=== PATIENT | female | born 1930 | race Caucasian/White ===

== ENCOUNTER 2020-05-05 16:15 | Observation (INO) | payer MEDICARE, OTHER ==
[~2020-05-05] VITALS: Ht 152.4 cm; Wt 66.6 kg
[~2020-05-05 16:15] MED LIST: Z.0.BENAZEPRIL HCL20 PO; Z.0.CARTIA XT240 MG PO; Z.0.EVISTA60 MG; Z.0.NEXIUM40 M1
[2020-05-05] MEDS ORDERED: SODIUM CHLORIDE 0.9% 1000ML 1,000 ML IV STA (16:34)
[2020-05-05] MEDS ORDERED: ASPIRIN 81 MG CHEW TAB PO ONE (16:45)
[2020-05-05 16:55] LABS: BASOPHILS % 0.1 % (0.0-1.0); HEMATOCRIT 41.1 % (34.2-44.1); HEMOGLOBIN 13.4 g/dL (12.0-16.0); LYMPHOCYTES # (AUTO) 0.8 (1.0-3.2); LYMPHOCYTES % 5.2 % (18.0-39.1); MEAN CORPUSCULAR HEMOGLOBIN 30.5 pg (28-32); MEAN CORPUSCULAR HGB CONC 32.6 g/dL (31-35); MEAN CORPUSCULAR VOLUME 93.6 fL (81-99); MONOCYTES # (AUTO) 1.3 (0.2-0.8); MONOCYTES % 8.6 % (4.4-11.3); NEUTROPHILS # (AUTO) 12.9 (2.1-6.9); NEUTROPHILS % 85.4 % (38.7-80.0); PLATELET COUNT 361 x10e3/uL (140-360); RED BLOOD COUNT 4.39 x10e6/uL (3.6-5.1)
[2020-05-05 17:15] LABS: ALANINE AMINOTRANSFERASE 23 IU/L (0-55); ALBUMIN 3.7 g/dL (3.5-5.0); ALBUMIN/GLOBULIN RATIO 1.1 (0.8-2.0); ALKALINE PHOSPHATASE 70 IU/L (40-150); ANION GAP 16.7 mmol/L (8-16); BLOOD UREA NITROGEN 9 mg/dL (7-26); BUN/CREATININE RATIO 13 (6-25); CALCIUM 9.2 mg/dL (8.4-10.2); CARBON DIOXIDE 27 mmol/L (22-29); CHLORIDE 94 mmol/L (98-107); CREATINE KINASE 350 IU/L (29-168); CREATININE, SERUM 0.71 mg/dL (0.57-1.11); EST GLOMERULAR FILTRATION RATE > 60 ML/MIN (60-); GLUCOSE 156 mg/dL (74-118); POTASSIUM 3.7 mmol/L (3.5-5.1); SODIUM 134 mmol/L (136-145)
[2020-05-05 21:01] VITALS: BP 148/85
[2020-05-05] MEDS ORDERED: ATORVASTATIN CA40 MG PO (21:02)
[2020-05-05] MEDS ORDERED: NEXIUM40 MG PO (21:02)
[2020-05-05] MEDS ORDERED: ASPIRIN81 MG PO (21:03)
[2020-05-05] MEDS ORDERED: Magnesium PO (21:04)
[2020-05-05] MEDS ORDERED: Vitamin D-3 PO (21:04)
[2020-05-05] MEDS ORDERED: COLACE100 MG PO (21:07)
[2020-05-05] MEDS ORDERED: Probiotic PO (21:07)
[2020-05-05] MEDS ORDERED: D-Mannose PO (21:07)
[2020-05-05] MEDS ORDERED: [UNRECOGNIZED DRUG - OTHER] PO (21:07)
[2020-05-05 21:57] VITALS: BP 148/85
[2020-05-05] MEDS: SODIUM CHLORIDE 0.9% 1000ML 1,000 ML IV SCH (22:10)
[2020-05-05 22:16] LABS: BILIRUBIN,URINE NEGATIVE (NEGATIVE); CLARITY,URINE CLEAR (CLEAR); COLOR,URINE YELLOW (YELLOW); KETONES,URINE 2+ (NEGATIVE); LEUKOCYTE ESTERASE ,URINE NEGATIVE (NEGATIVE); NITRITE,URINE NEGATIVE (NEGATIVE); PROTEIN,URINE DIPSTICK NEGATIVE (NEGATIVE); URINE UROBILINOGEN 0.2 mg/dL (0.2 - 1)
[2020-05-05 22:24] LABS: AMORPHOUS SEDIMENT,URINE MODERATE (FEW); BACTERIA,URINE FEW /HPF; EPITHELIAL CELLS,URINE FEW /LPF; RBC,URINE 0-5 /HPF (0-5); WBC,URINE (MAN) 0-5 /HPF (0-5)
[2020-05-05 22:43] VITALS: BP 148/85
[2020-05-06] VITALS (8 sets, daily range): BP systolic 139–191; BP diastolic 59–94
[2020-05-06 05:10] LABS: BASOPHILS % 0.1 % (0.0-1.0); EOSINOPHILS % 0.2 % (0.0-6.0); HEMATOCRIT 34.6 % (34.2-44.1); HEMOGLOBIN 11.1 g/dL (12.0-16.0); LYMPHOCYTES # (AUTO) 1.8 (1.0-3.2); LYMPHOCYTES % 19.6 % (18.0-39.1); MEAN CORPUSCULAR HGB CONC 32.1 g/dL (31-35); MEAN CORPUSCULAR VOLUME 93.5 fL (81-99); MONOCYTES # (AUTO) 0.9 (0.2-0.8); MONOCYTES % 10.5 % (4.4-11.3); NEUTROPHILS # (AUTO) 6.2 (2.1-6.9); NEUTROPHILS % 69.3 % (38.7-80.0); PLATELET COUNT 275 x10e3/uL (140-360); RED CELL DISTRIBUTION WIDTH 14.2 % (11.7-14.4)
[2020-05-06] MEDS: SODIUM CHLORIDE 0.9% 1000ML 1,000 ML IV SCH (05:26)
[2020-05-06 05:34] LABS: ALANINE AMINOTRANSFERASE 18 IU/L (0-55); ALBUMIN 2.7 g/dL (3.5-5.0); ALBUMIN/GLOBULIN RATIO 1.1 (0.8-2.0); ALKALINE PHOSPHATASE 50 IU/L (40-150); ANION GAP 12.1 mmol/L (8-16); BLOOD UREA NITROGEN 7 mg/dL (7-26); BUN/CREATININE RATIO 11 (6-25); CALCIUM 7.9 mg/dL (8.4-10.2); CARBON DIOXIDE 24 mmol/L (22-29); CHLORIDE 103 mmol/L (98-107); CREATININE, SERUM 0.62 mg/dL (0.57-1.11); EST GLOMERULAR FILTRATION RATE > 60 ML/MIN (60-); GLUCOSE 92 mg/dL (74-118); POTASSIUM 3.1 mmol/L (3.5-5.1); SODIUM 136 mmol/L (136-145)
[2020-05-06 10:00] LABS: CREATINE KINASE MB 3.1 ng/mL (0-5.0)
[2020-05-06] MEDS ORDERED: POTASSIUM CHLORIDE 10MEQ EA PO ONE (10:45)
[2020-05-06] MEDS: CEPHALEXIN 500 MG CAP PO SCH ×3 (11:06→21:27)
[2020-05-06] MEDS: BENAZEPRIL HCL 10 MG TAB PO SCH ×2 (11:07→17:20)
[2020-05-06] MEDS: DILTIAZEM HCL ER 120 MG CAP PO SCH ×2 (11:07→17:20)
[2020-05-06] MEDS ORDERED: PANTOPRAZOLE SOD 40 MG TABEC PO SCH (17:00)
[2020-05-06] MEDS ORDERED: ATORVASTATIN 40 MG TAB PO SCH (21:00)
[2020-05-06] MEDS ORDERED: MAGNESIUM OXIDE 400 MG TAB PO SCH (21:00)
[2020-05-07] VITALS (8 sets, daily range): BP systolic 130–166; BP diastolic 55–73
[2020-05-07 05:59] LABS: BASOPHILS % 0.3 % (0.0-1.0); EOSINOPHILS % 0.5 % (0.0-6.0); HEMATOCRIT 33.2 % (34.2-44.1); HEMOGLOBIN 10.7 g/dL (12.0-16.0); LYMPHOCYTES # (AUTO) 1.6 (1.0-3.2); MEAN CORPUSCULAR HEMOGLOBIN 30.3 pg (28-32); MEAN CORPUSCULAR HGB CONC 32.2 g/dL (31-35); MEAN CORPUSCULAR VOLUME 94.1 fL (81-99); MONOCYTES # (AUTO) 0.9 (0.2-0.8); MONOCYTES % 9.8 % (4.4-11.3); NEUTROPHILS # (AUTO) 6.2 (2.1-6.9); NEUTROPHILS % 70.9 % (38.7-80.0); PLATELET COUNT 271 x10e3/uL (140-360); RED BLOOD COUNT 3.53 x10e6/uL (3.6-5.1); RED CELL DISTRIBUTION WIDTH 14.3 % (11.7-14.4)
[2020-05-07 06:18] LABS: ANION GAP 10.5 mmol/L (8-16); BLOOD UREA NITROGEN 8 mg/dL (7-26); BUN/CREATININE RATIO 13 (6-25); CALCIUM 8.2 mg/dL (8.4-10.2); CARBON DIOXIDE 26 mmol/L (22-29); CHLORIDE 103 mmol/L (98-107); CREATININE, SERUM 0.62 mg/dL (0.57-1.11); EST GLOMERULAR FILTRATION RATE > 60 ML/MIN (60-); GLUCOSE 108 mg/dL (74-118); POTASSIUM 3.5 mmol/L (3.5-5.1); SODIUM 136 mmol/L (136-145)
[2020-05-07] MEDS: BENAZEPRIL HCL 10 MG TAB PO SCH (08:58)
[2020-05-07] MEDS: DILTIAZEM HCL ER 120 MG CAP PO SCH (08:58)
== END 2020-05-07 12:13 | disposition home or self-care (01) ==
LOC: ER 16:48 → INTOOBSV 18:24 → ERHOLD 18:24 → MED/SURG3 21:05
PROVIDERS: ADMIT Internal Medicine; ATTEND Internal Medicine
DX: E86.0 Dehydration (principal); M62.82 Rhabdomyolysis; S40.021A Contusion of right upper arm, initial encounter; W18.2XXA Fall in (into) shower or empty bathtub, initial encounter; Y92.002 Bathroom of unspecified non-institutional (private) residence as the place of occurrence of the external cause; Z11.59 Encounter for screening for other viral diseases; N39.0 Urinary tract infection, site not specified
CPT/HCPCS: 36415 ×3; 70450; 71046; 73090; 73521; 80048; 80053 ×2; 81001; 82550 ×2; 82552; 82553 ×2; 83880; 84484 ×2; 85025 ×3; 93005; 97116; 97161; 99284; G0378 ×3; J7030 ×2; S0164; U0002

== ENCOUNTER 2022-05-13 18:17 | Emergency (ER) | payer MEDICARE ==
[~2022-05-13 18:17] MED LIST changes: +ASPIRIN81 MG PO; +ATORVASTATIN CA40 MG PO; +COLACE100 MG PO; +D-Mannose PO; +Magnesium PO; +NEXIUM40 MG PO; +Probiotic PO; +Vitamin D-3 PO; +[UNRECOGNIZED DRUG - OTHER] PO
[2022-05-13] MEDS ORDERED: DIPHTH/TETANUS/ACEL. PERTUSSIS 0.5 ML SYR IM ONE (20:45)
[2022-05-13] MEDS ORDERED: TETANUS/DIPHTHERIA TOX ADULT 0.5 ML SYR ONE (21:07)
[2022-05-13 21:35] VITALS: BP 210/86
== END 2022-05-13 21:35 | disposition home or self-care (01) ==
LOC: FSED 18:51
DX: S81.811A Laceration without foreign body, right lower leg, initial encounter (principal); I10 Essential (primary) hypertension; K21.9 Gastro-esophageal reflux disease without esophagitis; E78.00 Pure hypercholesterolemia, unspecified; Z23 Encounter for immunization; Z88.2 Allergy status to sulfonamides; Z91.041 Radiographic dye allergy status; W22.03XA Walked into furniture, initial encounter; Y92.003 Bedroom of unspecified non-institutional (private) residence as the place of occurrence of the external cause; Z79.899 Other long term (current) drug therapy
CPT/HCPCS: 90471; 90714; 99283